=== PATIENT | male | born 1935 | race African-American/Black ===

== ENCOUNTER 2020-09-11 18:58 | Emergency (ER) | payer BC, MEDICAID, OTHER ==
[~2020-09-11] VITALS: Ht 172.7 cm; Wt 88.5 kg
[~2020-09-11 18:58] MED LIST: ATOR20TA PO; DILT360C32 PO; NEBI5TAB8 PO; NIFE-60 PO; ZOLP12.52 PO
--- NOTE | 2020-09-11 19:13 | NUR ---
PT IS IN ROOM #1A. DR VENTURA EVALUATED THE PT.
[2020-09-11] MEDS: CLONIDINE HCL 0.1 MG TABLET PO ONE (19:31)
[2020-09-11] MEDS ORDERED: CLONIDINE HCL 0.1 MG TABLET ONE (19:33)
[2020-09-11 19:49] LABS: BASOPHILS % (AUTO) 0.8 % (0.0-2.0); EOSINOPHILS # (AUTO) 0.3 K/uL (0.0-0.7); EOSINOPHILS % (AUTO) 5.7 % (0.0-7.0); HEMATOCRIT 43.8 % (36.7-47.1); HEMOGLOBIN 14.4 g/dL (12.5-16.3); LYMPHOCYTES % (AUTO) 21.7 % (20.5-51.5); MEAN CORPUSCULAR HEMOGLOBIN 30.6 uug (23.8-33.4); MEAN CORPUSCULAR HGB CONC 33 g/dL (32.5-36.3); MEAN CORPUSCULAR VOLUME 93.2 fL (73.0-96.2); MONOCYTES # (AUTO) 0.7 K/uL (2.0-10.0); MONOCYTES % (AUTO) 14.4 % (0.0-11.0); NEUTROPHILS # (AUTO) 2.7 K/uL (1.8-8.9); NEUTROPHILS % (AUTO) 57.4 % (38.5-71.5); PLATELET COUNT (AUTO) 159 K/uL (152-348); WHITE BLOOD COUNT (AUTO) 4.7 K/uL (3.6-10.2)
[2020-09-11 19:57] LABS: CARBON DIOXIDE 32 mmol/L (21-32); CHLORIDE 106 mmol/L (98-107); CREATININE 1.5 mg/dL (0.6-1.3); GLUCOSE 101 mg/dL (74-106); POTASSIUM 4.1 mmol/L (3.5-5.1); UREA NITROGEN, BLOOD 19 mg/dL (7-18)
[2020-09-11] MEDS ORDERED: CLON0.1T PO (20:55)
--- NOTE | 2020-09-11 21:15 | NUR ---
Patient discharged to home in stable condition. Written and verbal after care instructions given. Patient verbalizes understanding of instructions. Stressed follow up or return to ER for worsening s/s. No acute distress noted. Pt able to ambulate with steady gait. All belongings with pt.
[2020-09-11 21:16] VITALS: BP 148/97
== END 2020-09-11 21:22 | disposition home or self-care (01) ==
LOC: ER 19:01
DX: I10 Essential (primary) hypertension (principal); Z95.0 Presence of cardiac pacemaker; R94.31 Abnormal electrocardiogram [ECG] [EKG]; Z79.899 Other long term (current) drug therapy; Z82.49 Family history of ischemic heart disease and other diseases of the circulatory system
CPT/HCPCS: 36415; 83735; 85025; 93005